=== PATIENT | male | born 1965 | race Two or more races ===

== ENCOUNTER 2017-02-15 19:57 | Emergency (ER) | payer OTHER ==
[~2017-02-15] VITALS: Ht 167.6 cm; Wt 68.0 kg
[2017-02-15 20:02] VITALS: BP 123/69
== END 2017-02-15 22:43 | disposition left against medical advice (07) ==
LOC: ER 21:04
DX: M54.2 Cervicalgia (principal); Z53.21 Procedure and treatment not carried out due to patient leaving prior to being seen by health care provider